=== PATIENT | male | born 1950 | race Caucasian/White ===

== ENCOUNTER 2019-11-18 13:31 | Outpatient (CLI) | payer MEDICARE, BC | END 2019-11-18 13:32 | disposition home or self-care (01) | LOC: LAB.S 13:31 | PROVIDERS: ATTEND Internal Medicine | DX: R56.9 Unspecified convulsions (principal) | CPT/HCPCS: 36415; 80183; 81599 ==

== ENCOUNTER 2021-05-10 08:16 | Outpatient (CLI) | payer MEDICARE, BC ==
[2021-05-10 15:22] LABS: BASOPHILS % (AUTO) 0.4 %; EOSINOPHILS # (AUTO) 0.1 10^3/uL (0.0-0.7); EOSINOPHILS % (AUTO) 1.1 %; HCT - HEMATOCRIT 39.9 % (42.0-52.0); HGB - HEMOGLOBIN 14.1 g/dL (14.0-18.0); LYMPHOCYTES # (AUTO) 1.2 10^3/uL (1.5-3.5); LYMPHOCYTES % (AUTO) 25.6 %; MEAN CORPUSCULAR HEMOGLOBIN 35.1 pg (27.0-31.0); MEAN CORPUSCULAR HGB CONC 35.3 g/dL (32.0-36.0); MEAN CORPUSCULAR VOLUME 99.3 fL (80.0-94.0); MONOCYTES # (AUTO) 0.6 10^3/uL (0.0-1.0); NEUTROPHILS # (AUTO) 2.8 10^3/uL (1.5-6.6); NEUTROPHILS % (AUTO) 60.7 %; PLT - PLATELET COUNT 233 10^3/uL (130-450); RED BLOOD COUNT 4.02 10^6/uL (4.70-6.10); RED CELL DISTRIBUTION WIDTH 11.9 % (12.0-15.0); WHITE BLOOD COUNT 4.6 x10^3/uL (4.8-10.8)
[2021-05-10 19:26] LABS: ALBUMIN 4.3 g/dL (3.2-5.5); ALBUMIN/GLOBULIN RATIO 1.9 (1.0-2.2); BILIRUBIN,TOTAL 0.6 mg/dL (0.2-1.0); CALCIUM 8.9 mg/dL (8.5-10.3); CREATININE 0.4 mg/dL (0.6-1.2); POTASSIUM 4.1 mmol/L (3.5-5.0); TOTAL PROTEIN 6.6 g/dL (6.7-8.2)
== END 2021-05-10 08:17 | disposition home or self-care (01) ==
LOC: LAB.S 08:16
DX: R79.0 Abnormal level of blood mineral (principal)
CPT/HCPCS: 36415; 80053; 82728; 83540; 84466; 85025

== ENCOUNTER 2021-09-01 11:34 | Outpatient (CLI) | payer MEDICARE, BC ==
[2021-09-01 15:11] LABS: BASOPHILS % (AUTO) 0.6 %; EOSINOPHILS # (AUTO) 0.1 10^3/uL (0.0-0.7); EOSINOPHILS % (AUTO) 1.3 %; HCT - HEMATOCRIT 38.1 % (42.0-52.0); HGB - HEMOGLOBIN 13.3 g/dL (14.0-18.0); LYMPHOCYTES # (AUTO) 1.6 10^3/uL (1.5-3.5); LYMPHOCYTES % (AUTO) 29.9 %; MEAN CORPUSCULAR HEMOGLOBIN 34.1 pg (27.0-31.0); MEAN CORPUSCULAR HGB CONC 34.9 g/dL (32.0-36.0); MEAN CORPUSCULAR VOLUME 97.7 fL (80.0-94.0); MONOCYTES # (AUTO) 0.7 10^3/uL (0.0-1.0); MONOCYTES % (AUTO) 13.3 %; NEUTROPHILS # (AUTO) 2.9 10^3/uL (1.5-6.6); NEUTROPHILS % (AUTO) 54.7 %; PLT - PLATELET COUNT 215 10^3/uL (130-450); RED CELL DISTRIBUTION WIDTH 12.1 % (12.0-15.0); WHITE BLOOD COUNT 5.3 x10^3/uL (4.8-10.8)
[2021-09-01 15:18] LABS: ALBUMIN 4.6 g/dL (3.2-5.5); BILIRUBIN,DIRECT 0.1 mg/dL (0.1-0.5); BILIRUBIN,TOTAL 0.6 mg/dL (0.2-1.0); TOTAL PROTEIN 6.9 g/dL (6.7-8.2)
== END 2021-09-01 11:35 | disposition home or self-care (01) ==
LOC: LAB.S 11:34
PROVIDERS: ATTEND Dermatology
DX: B35.1 Tinea unguium (principal); Z51.81 Encounter for therapeutic drug level monitoring
CPT/HCPCS: 36415; 80076; 85025

== ENCOUNTER 2023-01-19 18:29 | Outpatient (CLI) | payer MEDICARE, BC | END 2023-01-19 23:59 | disposition left against medical advice (07) | LOC: EMS 18:29 | DX: R55 Syncope and collapse (principal); R03.1 Nonspecific low blood-pressure reading ==

== ENCOUNTER 2023-04-19 09:12 | Outpatient (CLI) | payer MEDICARE, BC ==
--- NOTE | 2023-04-19 10:56 | Ultrasound Report ---
PROCEDURE: Aorta Screening INDICATIONS: HIST OF SMOKING TECHNIQUE: Real time scanning was performed of the aorta and iliac arteries, with image documentatio n. COMPARISON: None. FINDINGS: Aorta: Proximal aortic diameter measures 2.5 x 2.6 cm. Mid-aorta measures 2 x 1.9 cm. Distal aorti c diameter is 1.6 x 1.8 cm. Iliac arteries: Right common iliac artery measures 1.2 x 1.4 cm. Left common iliac artery measures 1.4 x 1.4 cm. Scattered atherosclerotic plaque. IMPRESSION: 1.No abdominal aortic aneurysm. Proximal abdominal aorta is ectatic measuring 2.5 x 2.6 cm. Recommend repeat imaging in 5 years. 2.Bilateral common iliac arteries are normal in caliber, where visualized. Recommended intervals for follow-up imaging of ectatic aortas and abdominal aortic aneurysms, per ACR consensus guidelines: 2.5-2.9 cm: 5 years 3.0-3.4 cm: 3 years 3.5-3.9 cm: 2 years 4.0-4.4 cm: 1 year 4.5-4.9 cm: 6 months + endovascular referral 5.0-5.5 cm: 3-6 months + endovascular referral Reviewed by: Lino Hahn MD on 04/19/2023 10:55 AM PDT Approved by: Lino Hahn MD on 04/19/2023 10:55 AM PDT Station ID: [id number]
== END 2023-04-19 09:13 | disposition home or self-care (01) ==
LOC: DI 09:12
PROVIDERS: ATTEND Internal Medicine
DX: Z13.6 Encounter for screening for cardiovascular disorders (principal); I77.819 Aortic ectasia, unspecified site; Z87.891 Personal history of nicotine dependence

== ENCOUNTER 2023-08-24 09:01 | Day surgery (SDC) | payer MEDICARE, BC ==
[2023-08-24] MEDS: LACTATED RINGERS 1,000 ML IV ONE ×2 (09:51→11:11)
[2023-08-24] MEDS ORDERED: LIDOCAINE-MPF 2% 5 ML VIAL ONE (09:51)
[2023-08-24] MEDS ORDERED: PROPOFOL 500 MG/50 ML 500 MG/50 ML VIAL ONE (09:51)
--- NOTE | 2023-08-24 09:58 | ANESTHESIA ---
Pre-Anesthesia VS, & Labs - Diagnosis Screening - Procedure Colonoscopy Vital Signs: Temp Pulse Resp BP Pulse Ox O2 Flow Rate 36.7 C 71 10 L 166/91 H 100 08/24/23 09:05 08/24/23 09:05 08/24/23 09:05 08/24/23 09:05 08/24/23 09:05 Height: 5 ft 5 in Weight (kg): 66.2 kg Body Mass Index: 24.3 BMI Classification: Normal Home Medications and Allergies Home Medications: Ambulatory Orders OXcarbazepine [Trileptal] 900 mg PO DAILY 08/23/23 OXcarbazepine [Trileptal] 900 mg PO DAILY 08/23/23 Allergies/Adverse Reactions: Allergies Allergy/AdvReac Type Severity Reaction Status Date / Time Penicillins Allergy Hives Verified 08/23/23 13:36 Anes History & Medical History - Medical History Cardiovascular: reports: None Pulmonary: reports: None Gastrointestinal: reports: Colon polyps, Other Urinary: reports: None Musculoskeletal: reports: None Endocrine/Autoimmune: reports: None Skin: reports: Other - Surgical History General: reports: Colonoscopy Eyes Ears Nose Throat (EENT): reports: Other 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
[2023-08-24] MEDS ORDERED: PROPOFOL 200 MG/20 ML VIAL IVP ONE (10:41)
[2023-08-24 11:36] VITALS: O2SAT 100
[2023-08-24 11:46] VITALS: BP 168/96
--- NOTE | 2023-08-24 12:09 | ANESTHESIA POST OP EVALUATION ---
Anesthesia Post Eval - Post Anesthesia Eval Vitals: Last Vital Signs Temp 36.3 C L 08/24/23 11:11 Pulse 62 08/24/23 11:41 Resp 13 08/24/23 11:41 BP 168/96 H 08/24/23 11:41 Pulse Ox 100 08/24/23 11:41 O2 Flow Rate CV Function Including HR & BP: Stable Pain Control: Satisfactory Nausea & Vomiting: Negative Mental Status: Baseline Respiratory Status: Airway Patent Hydration Status: Satisfactory Anesthesia Complications: None
== END 2023-08-24 09:02 | disposition home or self-care (01) ==
LOC: SDS 09:01
PROVIDERS: ATTEND Surgery
PROC: 0DBL8ZZ Excision of Transverse Colon, Via Natural or Artificial Opening Endoscopic (ICD-10-PCS; 2023-08-24)
PROC: 0DBH8ZZ Excision of Cecum, Via Natural or Artificial Opening Endoscopic (ICD-10-PCS; principal; 2023-08-24 10:30)
DX: Z12.11 Encounter for screening for malignant neoplasm of colon (principal); D12.3 Benign neoplasm of transverse colon; K63.5 Polyp of colon; K57.30 Diverticulosis of large intestine without perforation or abscess without bleeding
CPT/HCPCS: 45380; J7120